=== PATIENT | male | born 1970 | race Two or more races ===

== ENCOUNTER 2020-02-24 05:15 | Day surgery (SDC) | payer OTHER ==
[2020-02-23 10:06] VITALS: BMI 32.5
[2020-02-24 08:32] VITALS: TEMP 98.8
[2020-02-24 09:46] VITALS: BP 108/68; PULSE 66
--- NOTE | 2020-02-27 19:18 | PATH ---
Surgical Pathology Report Patient Name: SHEMAR SCHNEIDER [facility]. Rec. #: [id number] /Age/Gender: 1970 (Age: 49) / M Account: [id number] Location: U-ENDOSCOPY Taken: 02/24/2020 Received: 02/24/2020 Reported: 02/27/2020 Physicians: Steve Bowles M.D. Specimen(s) Received A: CECAL POLYP B: ASCENDING COLON RANDOM BIOPSY Clinical History Screening colonoscopy Postoperative diagnosis: Hemorrhoids, diverticulosis, cecal polyp Final Diagnosis A. CECAL, POLYP, BIOPSY: POLYPOID COLONIC MUCOSA WITH PROMINENT LYMPHOID AGGREGATE. B. ASCENDING COLON, RANDOM, BIOPSY: COLONIC MUCOSA WITH SMALL LYMPHOID AGGREGATES. Electronically Signed Heidy Edwards M.D. Gross Description A. Received in formalin, labeled "biopsy cecal polyp" is a kemp, irregular portion of soft tissue measuring 0.6 cm. in greatest dimension. The specimen is submitted in toto in one cassette. B. Received in formalin, labeled "ascending colon random biopsy" is a kemp, irregular portion of soft tissue measuring 0.2 cm. in greatest dimension. The specimen is submitted in toto in one cassette. DL/02/24/2020 saudi/02/24/2020
== END 2020-02-24 09:05 | disposition home or self-care (01) ==
LOC: JASU-ENDO 05:15
PROVIDERS: ATTEND Internal Medicine Gastroenterology
PROC: 0DBH8ZX Excision of Cecum, Via Natural or Artificial Opening Endoscopic, Diagnostic (ICD-10-PCS; 2020-02-24)
PROC: 0DBK8ZX Excision of Ascending Colon, Via Natural or Artificial Opening Endoscopic, Diagnostic (ICD-10-PCS; principal; 2020-02-24 08:00)
DX: Z12.11 Encounter for screening for malignant neoplasm of colon (principal); K57.30 Diverticulosis of large intestine without perforation or abscess without bleeding; D12.0 Benign neoplasm of cecum; K64.8 Other hemorrhoids
CPT/HCPCS: 88305-TC